=== PATIENT | female | born 1980 | race Caucasian/White ===

== ENCOUNTER 2020-03-10 15:16 | Emergency (ER) | payer OTHER ==
[~2020-03-10] VITALS: Ht 175.3 cm; Wt 76.2 kg
[2020-03-10 15:49] LABS: URINE BILIRUBIN NEGATIVE (Negative); URINE BLOOD NEGATIVE (Negative); URINE CLARITY CLEAR; URINE COLOR YELLOW; URINE GLUCOSE-RANDOM* NEGATIVE (Negative); URINE KETONES NEGATIVE (Negative); URINE LEUKOCYTES-REFLEX NEGATIVE (Negative); URINE NITRITE-REFLEX NEGATIVE (Negative); URINE PROTEIN (DIPSTICK) NEGATIVE (Negative); URINE SPECIFIC GRAVITY 1.025 (1.005-1.035); URINE UROBILINOGEN 0.2 E.U./dl (0.2-1.0)
[2020-03-10 16:30] LABS: ABSOLUTE NEUTROPHILS 3.5 thou/uL (1.4-8.2); BASOPHILS 0.5 % (0.0-2.0); EOSINOPHILS 5.9 % (0.0-3.0); HEMATOCRIT 39.1 % (37.0-47.0); HEMOGLOBIN 12.2 gm/dL (12.0-15.0); LYMPHOCYTES 21.9 % (24.0-44.0); MCH 24.5 pg (26.0-34.0); MCHC 31.2 g/dL (28.0-37.0); MCV 78.6 fL (80.0-100.0); MONOCYTES 8.1 % (1.0-8.0); PLATELET COUNT 140 thou/uL (150-400); POLYS 63.6 % (36.0-66.0); RBC 4.98 mil/uL (4.20-5.00); RDW 19.7 % (10.5-14.5); WBC 5.4 thou/uL (4.0-11.0)
[2020-03-10 16:42] LABS: ALBUMIN 3.3 g/dL (3.4-5.0); CREATININE 0.9 mg/dL (0.6-1.0); TOTAL BILIRUBIN 0.2 mg/dL (0.2-1.0); TOTAL PROTEIN 6.6 g/dL (6.4-8.2)
[2020-03-10 16:44] LABS: APTT 25.9 Seconds (24.5-32.8)
[2020-03-10 16:48] LABS: CALCIUM 8.3 mg/dL (8.5-10.1)
[2020-03-10] MEDS ORDERED: LAMICTAL150 MG PO (18:08)
[2020-03-10] MEDS ORDERED: VENLAFAXINE HC100 MG PO (19:02)
[2020-03-10] MEDS ORDERED: CIPRO500 M1 PO (19:15)
[2020-03-10] MEDS ORDERED: NORCO 10-325 T1 EACH PO (19:15)
[2020-03-10] MEDS ORDERED: FLAGYL500 M1 PO (19:15)
[2020-03-10 19:59] VITALS: BP 134/86
== END 2020-03-10 20:08 | disposition home or self-care (01) ==
LOC: ER 15:16
PROVIDERS: Emergency Medicine
DX: K52.9 Noninfective gastroenteritis and colitis, unspecified (principal); K62.5 Hemorrhage of anus and rectum; R63.0 Anorexia; K21.9 Gastro-esophageal reflux disease without esophagitis; F17.210 Nicotine dependence, cigarettes, uncomplicated; Z79.899 Other long term (current) drug therapy; Z88.1 Allergy status to other antibiotic agents; Z88.0 Allergy status to penicillin; Z88.6 Allergy status to analgesic agent

== ENCOUNTER 2020-03-12 10:36 | Emergency (ER) | payer OTHER ==
[~2020-03-12] VITALS: Ht 175.3 cm; Wt 76.2 kg
[~2020-03-12 10:36] MED LIST: CIPRO500 M1 PO; FLAGYL500 M1 PO; LAMICTAL150 MG PO; NORCO 10-325 T1 EACH PO; VENLAFAXINE HC100 MG PO
[2020-03-12 11:16] LABS: ABSOLUTE NEUTROPHILS 5.1 thou/uL (1.4-8.2); BASOPHILS 0.6 % (0.0-2.0); EOSINOPHILS 3.4 % (0.0-3.0); HEMATOCRIT 38.6 % (37.0-47.0); HEMOGLOBIN 12.2 gm/dL (12.0-15.0); LYMPHOCYTES 11.7 % (24.0-44.0); MCH 24.2 pg (26.0-34.0); MCHC 31.6 g/dL (28.0-37.0); MCV 76.7 fL (80.0-100.0); MONOCYTES 6.4 % (1.0-8.0); PLATELET COUNT 143 thou/uL (150-400); POLYS 77.9 % (36.0-66.0); RBC 5.04 mil/uL (4.20-5.00); WBC 6.5 thou/uL (4.0-11.0)
[2020-03-12 11:26] LABS: CALCIUM 8.3 mg/dL (8.5-10.1); CREATININE 1.1 mg/dL (0.6-1.0); POTASSIUM 4.2 mmol/L (3.5-5.1)
[2020-03-12 11:32] LABS: ALBUMIN 3.4 g/dL (3.4-5.0); TOTAL BILIRUBIN 0.1 mg/dL (0.2-1.0); TOTAL PROTEIN 6.5 g/dL (6.4-8.2)
[2020-03-12 11:36] LABS: URINE BILIRUBIN NEGATIVE (Negative); URINE BLOOD NEGATIVE (Negative); URINE CLARITY CLEAR; URINE COLOR YELLOW; URINE GLUCOSE-RANDOM* NEGATIVE (Negative); URINE KETONES NEGATIVE (Negative); URINE LEUKOCYTES-REFLEX NEGATIVE (Negative); URINE NITRITE-REFLEX NEGATIVE (Negative); URINE PROTEIN (DIPSTICK) NEGATIVE (Negative); URINE UROBILINOGEN 0.2 E.U./dl (0.2-1.0)
[2020-03-12] MEDS ORDERED: IBUPROFEN 800800 M1 PO (13:10)
[2020-03-12] MEDS ORDERED: COLACE100 MG PO (13:10)
[2020-03-12] MEDS ORDERED: ZOFRAN ODT4 MG PO (13:10)
[2020-03-12] MEDS ORDERED: PERCOCET PO (13:14)
[2020-03-12 13:23] VITALS: BP 114/76
[2020-03-12 13:30] LABS: ANISOCYTOSIS 2+; MICROCYTES 1+
== END 2020-03-12 13:23 | disposition home or self-care (01) ==
LOC: ER 10:36
PROVIDERS: Physician Assistant
DX: N83.202 Unspecified ovarian cyst, left side (principal); R42 Dizziness and giddiness; R11.2 Nausea with vomiting, unspecified; F17.210 Nicotine dependence, cigarettes, uncomplicated; Z98.51 Tubal ligation status; Z98.890 Other specified postprocedural states; Z90.49 Acquired absence of other specified parts of digestive tract; Z79.899 Other long term (current) drug therapy; Z88.1 Allergy status to other antibiotic agents; Z88.6 Allergy status to analgesic agent; Z88.0 Allergy status to penicillin